=== PATIENT | male | born 1955 | race Caucasian/White ===

== ENCOUNTER 2017-01-27 16:55 | Inpatient (IN) ==
[2017-01-27] MEDS ORDERED: IPRATROPIUM/ALBUTEROL 2.5mg-0.5mg/3ml NEB AEROSOL ONE (17:08)
--- NOTE | 2017-01-27 17:16 | Emergency Department Report ---
SOB HPI - General Chief Complaint: Shortness of Breath/Dyspnea Stated Complaint: Difficulty Breathing Time Seen by Provider: 01/27/17 17:07 Source: patient Mode of arrival: ambulatory Limitations: no limitations - History of Present Illness He presents to ER today for dyspnea. Was seen in our ER last weekend for the same. Had workup done and was negative at that time aside from his troponin being upper limit of normal. Was presented to hospitalist for admission and needed cardiology ok before acceptance. He has had been in the hospital in July of 2016 for bypass surgery but decided not to do the surgery as he was too worried about the risk. Had not followed up with anyone since then. He did not want to be admitted over the weekend for his COPD and further workup given his troponin was upper limit of normal. Had stated at that time that he needed to get some things in line at home. He was sent home with a nebulizer and Albuterol but state that he ordered the nebulizer on [employer] and did not get it until 2 days ago. Followed up today with Dr Molina and was advised to come to ER. He did refuse EMS but did go home and have his neighbor drive him to Er. Upon arrival he is tachypneic and in tripod position. Noted sats are 79% on RA. He does not wear O2 at home. He is able to speak but not in complete sentences. Does have chest pain when he takes a deep breath but denies at this time otherwise. Complaint: shortness of breath Onset (ago): week(s) Context: other (exacerbation of his COPD) Severity: moderate Consistency/Duration: constant Relieving factors: rest, upright position Exacerbating factors: lying flat, exertion, movement, coughing Known history of: COPD, other (CAD) Associated symptoms: chest pain, pain with inspiration, cough, wheezing, sputum production, orthopnea Treatment prior to arrival: bronchodilator - Related Data Home oxygen amount: none Home Medications Medication Instructions Recorded Confirmed Atenolol/Chlorthalidone 50/25 1 tab PO DAILY #0 08/07/15 01/27/17 [Tenoretic] Gabapentin 300 mg PO TID #0 08/07/15 01/27/17 Isosorbide Dinitrate 30 mg PO DAILY #0 08/07/15 01/27/17 Lovastatin 20 mg PO HS #0 08/07/15 01/27/17 Aspirin 650 mg PO TID PRN #30 tab 12/16/15 01/27/17 Albuterol Inhaler [Ventolin Hfa] 1 puff INH QID PRN 01/27/17 01/27/17 Azithromycin [Zithromax] 250 mg PO DAILY 01/27/17 01/27/17 Fish Oil 1,200 mg Fish Oil 1,200 mg PO BID 01/27/17 01/27/17 Fluticasone/Vilanterol [Breo 1 puff INH DAILY 01/27/17 01/27/17 Ellipta 200-25 Mcg INH] Metformin [Glucophage] 1,000 mg PO BID 01/27/17 01/27/17 Previous Rx's Medication Instructions Recorded Albuterol Sulfate 2.5 mg AEROSOL Q4H PRN #60 vial 01/22/17 PredniSONE [Deltasone] 20 mg PO WB #12 tablet 01/22/17 Allergies Allergy/AdvReac Type Severity Reaction Status Date / Time No Known Allergies Allergy Verified 01/27/17 17:55 Review of Systems Constitutional: Reports: weakness. Denies: fever, chills Cardiovascular: Reports: chest pain, dyspnea on exertion. Denies: palpitations , edema Respiratory: Reports: cough, dyspnea, wheezes Gastrointestinal: Denies: abdominal pain, nausea, vomiting, diarrhea, constipation Integumentary: Denies: rash Neurological: Denies: headache, weakness, numbness, paresthesias PFSH Patient Stated Medical History Cataracts Yes Angina Yes Hypertension Yes Myocardial Infarction Yes Other Cardiology Yes: REFUSED BIPASS 6 MONTHS AGO Chronic Obstructive Pulmonary Yes Disease (COPD) Other Respiratory Yes: EMPHYSEMIA Diabetes Mellitus Type 2 Yes Family History: non contributory - Social History Smoking status: Current every day smoker Physical Exam - General General appearance: alert, in no apparent distress - Normal Exams: ENMT:: No facial trauma, nasal exudates, pharyngeal erythema, or exudates are noted Neck:: Full range of motion, without adenopathy, JVD, bruits or thyromegaly Abdomen:: Bowel sounds positive, soft, non-tender, non-distended, no hepatosplenomegaly, masses or bruits noted Lymphatic:: No lymphadenopathy, or lymphedema noted Neurological:: Patient is alert, and oriented Psychiatric:: Patient exhibits, appropriate attention, emotion and affect - Respiratory Respiratory exam: Present: wheezes (in BUL but diminished throughout mostly. tripod position with tachypnea) - Cardiovascular Cardiovascular exam: Present: tachycardia, normal heart sounds. Absent: regular rate (tachycardic) Course Vital Signs Respiratory Rate 18 01/27/17 17:18 Pulse Oximetry 95 01/27/17 17:18 Respiratory Rate 30 H 01/27/17 18:08 Pulse Oximetry 94 01/27/17 18:08 Shortness of Breath/Dyspnea - [facility] Narrative Medical decision making narrative: troponin today is lower than on previous admit. Did discuss HPI and exam today with Dr Mirza who will accept for admission at this time. Patient does agree to admission for pulmonary symptoms. - Differential Diagnosis Likely: acute exacerbation of chronic obstructive airways disease, community acquired pneumonia (AMI, angina) - Lab Data Attestation: I reviewed the patient's lab results. Result diagrams: 01/27/17 17:21 01/27/17 17:21 Lab Results 01/27/17 01/27/17 Range/Units 17:21 17:21 WBC 11.1 H (4.5-11.0) T/MM3 RBC 6.29 H (4.50-5.90) M/MM3 Hgb 18.3 H (13.5-17.5) GM/DL Hct 56.2 H (41-53) % MCV 89.3 (80-100) UM3 MCH 29.1 (26-34) UUG MCHC 32.6 (31-37) GM/DL RDW Std Deviation 46.6 (36.9-50.2) FL Plt Count 388 (130-400) T/MM3 MPV 9.5 (9.4-12.4) UM3 Immature Gran % (Auto) Not performed Neut % (Auto) Not performed Lymph % (Auto) Not performed [place] % (Auto) Not performed Eos % (Auto) Not performed Baso % (Auto) Not performed Neut # Not performed Lymph # Not performed [place] # Not performed Baso # Not performed Abs Immat Gran (auto) Not performed Neutrophils % (Manual) 89.0 H (33-66) % Lymphocytes % (Manual) 9.0 L (23-45) % Monocytes % (Manual) 2.0 (0-9.0) % Neutrophils # (Manual) 9.9 H (1.8-7.7) T/MM3 Lymphocytes # (Manual) 1.0 (1-4.8) T/MM3 Monocytes # (Manual) 0.2 (0-0.8) T/MM3 RBC Morph Comment Normal Turbidity < 20 (0-20) Sodium 143 (134-144) MEQ/L Potassium 5.0 (3.6-5) MEQ/L Chloride 94 L (98-107) MEQ/L Carbon Dioxide 31 H (22-30) MEQ/L Anion Gap 18 H (5-15) MEQ/L BUN 40.0 H (9-20) MG/DL Creatinine 1.4 (0.8-1.5) MG/DL GFR Calculation 52 BUN/Creatinine Ratio 29 H (6-26) RATIO Glucose 334 H (75-110) MG/DL Calculated Osmolality 298 H (261-280) MOSM/KG Calcium 10.4 H (8.4-10.2) MG/DL Icterus Index < 2 (0-7) Troponin I 0.016 (0-0.12) ng/ml Specimen Hemolysis < 15 (0-25) - Radiology Data Attestation: I reviewed the patient's radiology results. Disposition Clinical Impression: COPD with exacerbation Disposition: 02 To [facility] Acute Care Condition: Stable Time of Disposition: 17:54 - Seen By: midlevel
[2017-01-27] MEDS ORDERED: METHYLPREDNISOLONE SOD SUCC 125mg/2ml INJECTION IVP ONE (17:51)
[2017-01-27] MEDS ORDERED: ALBUTEROL 2.5mg/3ml (0.083%) NEB AEROSOL ONE (17:53)
[2017-01-27] MEDS: SALINE FLUSH 10ml SYRINGE IVF PRN (17:56)
[2017-01-27] MEDS ORDERED: ONDANSETRON 4 MG/2 ML INJECTION IVP PRN (19:59)
[2017-01-27] MEDS ORDERED: CALCIUM CARBONATE Chewable 500mg TABLET PO PRN (19:59)
[2017-01-27] MEDS ORDERED: HYDROCODONE/APAP 5mg/325mg TABLET PO PRN (19:59)
[2017-01-27] MEDS ORDERED: ACETAMINOPHEN 325 MG TABLET PO PRN (19:59)
[2017-01-27] MEDS ORDERED: ALBUTEROL 2.5mg/3ml (0.083%) NEB AEROSOL PRN (20:14)
--- NOTE | 2017-01-27 20:20 | History & Physical Report ---
History of Present Illness Date: 01/27/17 Chief complaint: dyspnea HPI: Mr. Medrano 61-year-old male with known COPD and coronary artery disease. He's had increasing dyspnea for 2 weeks with cough productive of clear sputum. He's had significant deterioration in exertional tolerance and is now able to ambulate only about 10 feet due to dyspnea. He reports he is unable to lay down for more than short periods of time and had to sleep at his table earlier this week to get a couple of hours of rest. He developed rhinorrhea over the past couple of days but is otherwise had no nasal congestion or upper symptoms. He was seen in the emergency room over the weekend at which time hospitalization was recommended but the patient elected to discharge home. A nebulizer was ordered for the patient but he did not get the equipment and medication until 2 days ago. He's continued to have progressive dyspnea. He denied fevers, chills, sweats, or purulent sputum. He reports having some mild chest pain occurring primarily when he is having a lot of trouble breathing and can't get his breath. He was seen at [facility] earlier today and advised to go to the emergency room. Oxygen saturation was 79% on room air and the patient was reported to be in tripod position. He was in respiratory distress in the emergency room with respiratory rates of 30 and heart rate of 108. He is hospitalized now with acute hypoxic respiratory failure/COPD exacerbation. Review of Systems Review of systems: Comprehensive review of systems completed with patient describing chronic claudication at one fourth block, occasional chest pain as noted above with frequent palpitations. Increased anxiety associated with breathlessness, and chronically numb feet. Remainder of review negative or as per history of present illness. [facility] Patient Stated Medical History Peripheral Neuropathy Yes Cataracts Yes Dental Problems Yes: NO TEETH Angina Yes Hypertension Yes Myocardial Infarction Yes Triple-vessel coronary artery disease, bypass recommended Chronic Obstructive Pulmonary Yes Disease (COPD) Diabetes Mellitus Type 2 Yes Peripheral vascular disease Chronic anxiety Hyperlipidemia Surgical History: Tonsillectomy - Social History Smoking status: Current every day smoker (vitals his own cigarettes-45 cigarettes per day although decreased to 15 per day the past 2 weeks; 50 years) Time spent discussing smoking cessation with patient: 3 to 10 minutes Substance use type: marijuana Alcohol intake frequency: former alcohol drinker (discontinue 1990) Household members: none Does patient use chewing tobacco?: No Social history: PCP-Dr. Molina Cardiology-Dr. Alicea DPOA-none does not identify an alternate decision maker CODE STATUS-DO NOT RESUSCITATE; if he is conscious and can talk will discuss options at the time Medications Home Medications Medication Instructions Recorded Confirmed Type Atenolol/Chlorthalidone 50/25 1 tab PO DAILY #0 08/07/15 01/27/17 History [Tenoretic] Gabapentin 300 mg PO TID #0 08/07/15 01/27/17 History Isosorbide Dinitrate 30 mg PO DAILY #0 08/07/15 01/27/17 History Lovastatin 20 mg PO HS #0 08/07/15 01/27/17 History Aspirin 650 mg PO TID PRN #30 tab 12/16/15 01/27/17 History Albuterol Inhaler [Ventolin Hfa] 1 puff INH QID PRN 01/27/17 01/27/17 History Azithromycin [Zithromax] 250 mg PO DAILY 01/27/17 01/27/17 History Fish Oil 1,200 mg Fish Oil 1,200 mg PO BID 01/27/17 01/27/17 History Fluticasone/Vilanterol [Breo 1 puff INH DAILY 01/27/17 01/27/17 History Ellipta 200-25 Mcg INH] Metformin [Glucophage] 1,000 mg PO BID 01/27/17 01/27/17 History Allergies Allergy/AdvReac Type Severity Reaction Status Date / Time No Known Allergies Allergy Verified 01/27/17 17:55 Exam Vital Signs: Temp Pulse Resp BP Pulse Ox 97.6 F 96 30 H 151/85 H 96 01/27/17 19:36 01/27/17 19:36 01/27/17 19:36 01/27/17 19:36 01/27/17 19:36 EXAM: General-cachectic male on 3 L supplemental oxygen, dyspneic with speaking, HEENT-PERRL, EOMI without nystagmus, conjugate gaze, conjunctiva clear, sclera anicteric facial structures symmetric, oropharynx clear, neck supple and without adenopathy Lungs-moderate respiratory distress at rest, accessory muscle use evident, decreased breath sounds throughout but no wheezing, no rhonchi Cardiac-regular rhythm, low-grade tachycardia, S1 and S2 Abd-soft, nontender, without palpable mass, bowel sounds present Ext-without edema Skin-bradycardia complexion, no obvious wounds MS-muscle atrophy Neuro-cranial nerves 3-12 grossly intact, no tremor, sensation intact 4 extremities Psych-anxious Height: 1.57 m Weight: 55.6 kg Body Mass Index: 22.4 Results - Labs CBC & Chem 7: 01/27/17 17:21 01/27/17 17:21 Labs: Differential 89 neutrophils, 9 lymphocytes, 2 monocytes - Pulse Oximetry Interpretation Digit-Finger Actions taken: none - ECG Data Tracing #1 Sinus rhythm, right bundle branch block with secondary ST/T-wave abnormalities; old inferior SD. - Imaging and Cardiology Chest x-ray Status: image reviewed by me (hyperinflated lung jama without infiltrate, possible small effusions bilaterally) Assessment and Plan Assessment and Plan: Acute hypoxic respiratory failure COPD exacerbation Diabetes mellitus with neuropathy; uncontrolled Hypertension Coronary artery disease, triple-vessel Peripheral vascular disease, severe Acute kidney injury/chronic kidney disease Hypercalcemia Patient is admitted with acute hypoxic respiratory failure and respiratory distress. There is no evidence of infiltrate on chest x-ray and symptoms are more compatible with viral prodrome. Respiratory viral panel be obtained. Steroids were initiated in the emergency room and will be continued. Antibiotics will be continued with Levaquin daily. Breathing treatments have been initiated, continue Breo, check respiratory viral panel and sputum culture. Blood gas in the morning. Blood sugars significantly elevated on admission, check A1c. Monitor blood sugars. Continue metformin. Add corrective scale insulin. Patient likely require relatively high dose insulin in conjunction with steroids. Troponin 0.016 in the emergency room, improved from last week. Check serial values. Dr. Alicea performed heart catheter last year demonstrating triple vessel disease and recommended bypass surgery. BUN/creatinine elevated from baseline-likely dry but may represent progression of underlying diabetic renal disease. Low-volume fluids and monitor. Sepsis Assessment - Focused Exam Vital Signs Temp Pulse Resp BP Pulse Ox 01/27/17 19:36 97.6 F 96 30 H 151/85 H 96 01/27/17 19:10 104 H 24 153/84 H 91 Hospital Course Summary Disclaimer: The visit summary below is not to be considered part of the above Progress Note. Hospital Course: 01/27/17 20:46 Patient is admitted with acute hypoxic respiratory failure and respiratory distress. There is no evidence of infiltrate on chest x-ray and symptoms are more compatible with viral prodrome. Respiratory viral panel be obtained. Steroids were initiated in the emergency room and will be continued. Antibiotics will be continued with Levaquin daily. Breathing treatments have been initiated, continue Breo, check respiratory viral panel and sputum culture. Blood gas in the morning. Blood sugars significantly elevated on admission, check A1c. Monitor blood sugars. Continue metformin. Add corrective scale insulin. Patient likely require relatively high dose insulin in conjunction with steroids. Troponin 0.016 in the emergency room, improved from last week. Check serial values. Dr. Alicea performed heart catheter last year demonstrating triple vessel disease and recommended bypass surgery. BUN/creatinine elevated from baseline-likely dry but may represent progression of underlying diabetic renal disease. Low-volume fluids and monitor.
[2017-01-27] MEDS: IPRATROPIUM/ALBUTEROL 2.5mg-0.5mg/3ml NEB AEROSOL SCH (20:28)
[2017-01-27] MEDS ORDERED: INSULIN ASPART 100unit/ml INJECTION SQ PRN (20:35)
[2017-01-27] MEDS ORDERED: NITROGLYCERIN 0.4 MG SUBLINGUAL TABLET SL PRN (20:42)
[2017-01-27] MEDS ORDERED: METFORMIN 1,000 MG TABLET PO SCH (21:00)
[2017-01-27] MEDS: DOCUSATE SODIUM 100 MG CAPSULE PO SCH (21:29)
[2017-01-27] MEDS: METHYLPREDNISOLONE SOD SUCC 125mg/2ml INJECTION IVP SCH (21:29)
[2017-01-27] MEDS: LOVASTATIN 20 MG TABLET PO SCH (21:29)
[2017-01-27] MEDS: GABAPENTIN 300 MG CAPSULE PO SCH (21:29)
[2017-01-27] MEDS: NS 1,000 ML IV SCH (21:32)
[2017-01-28] MEDS: IPRATROPIUM/ALBUTEROL 2.5mg-0.5mg/3ml NEB AEROSOL SCH ×4 (00:48→22:55)
[2017-01-28] MEDS: METHYLPREDNISOLONE SOD SUCC 125mg/2ml INJECTION IVP SCH ×4 (03:50→22:32)
[2017-01-28] MEDS: LEVOFLOXACIN 500 MG TABLET PO SCH (05:40)
--- NOTE | 2017-01-28 08:15 | XRay Report ---
INDICATION: dyspnea PROCEDURE: CHEST 2-VIEWS UPRIGHT (PA & LAT) Encounter: Initial Comparison: January 22, 2017 Findings: The lungs are stable in appearance without new focal airspace consolidation. There is no pleural effusion or pneumothorax. The heart size, pulmonary vascularity and mediastinal contours are unchanged. IMPRESSION: Stable appearance of the chest without acute cardiopulmonary disease. .
[2017-01-28] MEDS: ATENOLOL/CHLORTHALIDONE 50 MG/25 MG TABLET PO SCH (08:26)
[2017-01-28] MEDS: OMEGA-3 ACID ESTERS 1 GM CAPSULE PO SCH ×2 (08:27→22:31)
[2017-01-28] MEDS: METFORMIN 1,000 MG TABLET PO SCH ×2 (08:27→18:38)
[2017-01-28] MEDS: DOCUSATE SODIUM 100 MG CAPSULE PO SCH ×3 (08:27→22:40)
[2017-01-28] MEDS: GABAPENTIN 300 MG CAPSULE PO SCH ×3 (08:27→22:31)
[2017-01-28] MEDS: ISOSORBIDE MONONITRATE ER 30 MG TABLET PO SCH (08:27)
[2017-01-28] MEDS: NICOTINE 21 MG PATCH TD SCH (08:28)
[2017-01-28] MEDS ORDERED: AZITHROMYCIN 250 MG TABLET PO SCH (09:00)
[2017-01-28] MEDS: ALPRAZolam 0.5 MG TABLET PO PRN (10:21)
[2017-01-28] MEDS: NS 1,000 ML IV SCH (15:32)
--- NOTE | 2017-01-28 16:42 | Progress Note ---
Subjective: Mr. Medrano was resting comfortably when seen. He reports is not quite as short of breath today as he was yesterday and that he did not get dyspneic going to the bathroom earlier today. Cough is improved and he denies sputum production. He's had no chest pain or palpitations and denied nausea, lightheadedness, or generalized pain. His appetite is improved. Respiratory therapy indicated the patient refused several breathing treatments overnight. Objective Vital signs: Temp Pulse Resp BP Pulse Ox 95.8 F L 88 22 157/89 H 97 01/28/17 15:00 01/28/17 15:49 01/28/17 15:15 01/28/17 15:00 01/28/17 15:15 EXAM Rztzmmk-onmmwiso-kuvkbbiky male, resting comfortably, awakens to voice HEENT-conjunctiva clear, conjugate gaze, oropharynx clear-no thrush Lungs-respirations are nonlabored at present with decreased airflow, breath sounds are clear although minimal airflow is audible anteriorly or posteriorly Cardiac-regular rhythm, S1-S2 Abd-abdomen soft, nontender, bowel sounds present but diminished Ext-without edema Psych-drowsy - Weight: 53.54 kg Results - Labs CBC & Chem 7: 01/27/17 17:21 01/28/17 04:33 Labs: ABG obtained this mornin.38/42/56/25 with oxygen saturation 88% on 2 L per nasal cannula D-dimer <150 Accu-Cheks today: [id number] Urinalysis positive for trace protein, +2 glucose. Respiratory viral panel positive for rhinovirus. Gram stain with moderate neutrophils, moderate gram-positive cocci in pairs, few gram-negative rods, and moderate yeast. - ABG Interpretation Attestation: I reviewed and interpreted this ABG. ABG results: 01/28/17 07:00 ABG pH 7.379 ABG pCO2 42 ABG pO2 56 L ABG HCO3 25 ABG Total CO2 26 ABG O2 Saturation 88.0 L ABG Base Excess -1.0 Interpretation: other (hypoxia) Assessment and Plan (1) Rhinovirus infection Current visit: Yes Status: Acute (2) COPD with exacerbation Current visit: Yes Status: Acute (3) Acute and chronic respiratory failure with hypoxia Current visit: Yes Status: Acute Assessment and Plan: Acute hypoxic respiratory failure COPD exacerbation Rhinovirus infection Diabetes mellitus with neuropathy; uncontrolled; A1c 7.6 on 01/28/17 Hypertension Coronary artery disease, triple-vessel Peripheral vascular disease, severe Acute kidney injury/chronic kidney disease Hypercalcemia-resolved CKD, stage 2-3 Persistent hypoxia but symptoms have clinically improved while patient is at rest. Continue IV steroids overnight with plans to convert to prednisone in the morning. Continue breathing treatments-patient encouraged to use treatments regularly. Moderate hyperglycemia present overnight, patient has refused corrective scale insulin on several occasions. Anticipate improvement in blood sugar control with conversion to oral steroids. Continue diabetic diet. Current COPD exacerbation likely triggered by rhinovirus infection but will continue Levaquin pending results of sputum culture. Serial troponins unremarkable, no chest pain overnight. Renal function has improved with low-volume fluids and calcium normalized. Laboratory data reviewed, supplemental history provided by nursing and respiratory therapy. Sepsis Assessment - Evaluation Sepsis screening result: No Definite Risk - Focused Exam Vital Signs Temp Pulse Resp BP Pulse Ox 01/28/17 15:49 88 01/28/17 15:15 22 97 01/28/17 15:00 95.8 F L 83 157/89 H 94 01/28/17 08:00 91 01/28/17 07:27 95.6 F L 75 18 172/92 H 98 01/28/17 07:25 24 98 Capillary refill: < 2-3 Seconds Hospital Course Summary Disclaimer: The visit summary below is not to be considered part of the above Progress Note. Hospital Course: 01/27/17 20:46 Patient is admitted with acute hypoxic respiratory failure and respiratory distress. There is no evidence of infiltrate on chest x-ray and symptoms are more compatible with viral prodrome. Respiratory viral panel be obtained. Steroids were initiated in the emergency room and will be continued. Antibiotics will be continued with Levaquin daily. Breathing treatments have been initiated, continue Breo, check respiratory viral panel and sputum culture. Blood gas in the morning. Blood sugars significantly elevated on admission, check A1c. Monitor blood sugars. Continue metformin. Add corrective scale insulin. Patient likely require relatively high dose insulin in conjunction with steroids. Troponin 0.016 in the emergency room, improved from last week. Check serial values. Dr. Alicea performed heart catheter last year demonstrating triple vessel disease and recommended bypass surgery. BUN/creatinine elevated from baseline-likely dry but may represent progression of underlying diabetic renal disease. Low-volume fluids and monitor. 01/28/17 17:05 Persistent hypoxia but symptoms have clinically improved while patient is at rest. Continue IV steroids overnight with plans to convert to prednisone in the morning. Continue breathing treatments-patient encouraged to use treatments regularly. Moderate hyperglycemia present overnight, patient has refused corrective scale insulin on several occasions. Anticipate improvement in blood sugar control with conversion to oral steroids. Continue diabetic diet. Current COPD exacerbation likely triggered by rhinovirus infection but will continue Levaquin pending results of sputum culture. Serial troponins unremarkable, no chest pain overnight. Renal function has improved with low-volume fluids and calcium normalized.
[2017-01-28] MEDS: LOVASTATIN 20 MG TABLET PO SCH (22:30)
[2017-01-28] MEDS: MORPHINE SULFATE 2 MG SYRINGE IVP PRN (22:33)
[2017-01-28] MEDS: FLUTICASONE/VILANTEROL 100/25mcg INHALER ORAL INH SCH (22:56)
[2017-01-29] MEDS: MORPHINE SULFATE 2 MG SYRINGE IVP PRN (01:43)
[2017-01-29] MEDS: SALINE FLUSH 10ml SYRINGE IVF PRN ×2 (01:55→03:16)
[2017-01-29] MEDS: METHYLPREDNISOLONE SOD SUCC 125mg/2ml INJECTION IVP SCH (03:15)
[2017-01-29] MEDS: IPRATROPIUM/ALBUTEROL 2.5mg-0.5mg/3ml NEB AEROSOL SCH ×4 (05:20→23:20)
[2017-01-29] MEDS: LEVOFLOXACIN 500 MG TABLET PO SCH (05:43)
[2017-01-29] MEDS: ISOSORBIDE MONONITRATE ER 30 MG TABLET PO SCH (05:44)
[2017-01-29] MEDS: OMEGA-3 ACID ESTERS 1 GM CAPSULE PO SCH ×2 (08:25→22:04)
[2017-01-29] MEDS: PredniSONE 20 MG TABLET PO SCH (08:25)
[2017-01-29] MEDS: GABAPENTIN 300 MG CAPSULE PO SCH ×3 (08:26→22:04)
[2017-01-29] MEDS: ATENOLOL/CHLORTHALIDONE 50 MG/25 MG TABLET PO SCH (08:26)
[2017-01-29] MEDS: NICOTINE PATCH REMOVAL TD SCH (08:26)
[2017-01-29] MEDS: NICOTINE 21 MG PATCH TD SCH (08:26)
[2017-01-29] MEDS: ENOXAPARIN 40 MG/0.4 ML INJECTION SQ SCH ×2 (08:26→14:12)
[2017-01-29] MEDS: METFORMIN 1,000 MG TABLET PO SCH ×2 (08:27→17:38)
[2017-01-29] MEDS: FLUTICASONE/VILANTEROL 100/25mcg INHALER ORAL INH SCH (10:06)
--- NOTE | 2017-01-29 12:23 | Progress Note ---
Subjective: Pt reports he's feeling a bit better but not back to his baseline yet. Denies any cp, n/v/d, f/c. SOB is still present, breathing tx's helping. Pt reports two things that will not change are him smoking cigarettes and him smoking pot. Objective Vital signs: Temp Pulse Resp BP Pulse Ox 95.7 F L 81 16 141/76 H 99 01/29/17 08:06 01/29/17 08:06 01/29/17 10:10 01/29/17 08:06 01/29/17 08:06 Rhythm: Normal Sinus Rhythm Weight: 55.4 kg - Constitutional Present: no acute distress - Routine HEENT Exam Head: Present: normocephalic, atraumatic Eye: Present: EOMI ENT: Present: mucous membranes moist - Routine Respiratory Exam Present: prolonged expiratory phase, wheezes - Routine Cardiovascular Exam Present: RRR, no murmur - Routine Abdominal Exam Present: non distended, non tender - Routine Extremities Exam Absent: cyanosis, clubbing, edema - Routine Skin Exam Present: intact, dry. Absent: rash Results - Labs CBC & Chem 7: 01/29/17 05:20 01/29/17 05:20 - ABG Interpretation ABG results: 01/28/17 07:00 ABG pH 7.379 ABG pCO2 42 ABG pO2 56 L ABG HCO3 25 ABG Total CO2 26 ABG O2 Saturation 88.0 L ABG Base Excess -1.0 Assessment and Plan (1) COPD with exacerbation Current visit: Yes Status: Acute (2) Rhinovirus infection Current visit: Yes Status: Acute (3) Acute and chronic respiratory failure with hypoxia Current visit: Yes Status: Acute Assessment and Plan: COPD exacerbation -2/2 Rhinovirus infection -Cont. RCAT, prednisone D3, Cont. Levaquin as sputum GS showed g+ and g- organisms, await cx's -CXR shows chronic changes, Cont. O2 support as needed -Pt not interested in quitting smoking Acute hypoxic respiratory failure -2/2 COPD exacerbation -Tx per above, may need setup for home O2 DM -Complicated with neuropathy -uncontrolled; A1c 7.6 on 01/28/17 -Cont. Metformin, gabapentin -hyperglycemia d/t steroid use but pt refusing any insulin -Monitor Hypertension -Cont. home isosorbide mononitrate, atenolol CAD/PVD -Severe -triple-vessel -Pt has been evaluated in the past but has refused any interventions CKD stage 2-3 -At baseline Ppx -DVT-Lovenox (pt refusing) Sepsis Assessment - Evaluation Sepsis screening result: No Definite Risk - Focused Exam Vital Signs Temp Pulse Resp BP Pulse Ox 01/29/17 10:10 16 01/29/17 08:06 95.7 F L 81 20 141/76 H 99 01/29/17 08:00 84 Capillary refill: < 2-3 Seconds Hospital Course Summary Disclaimer: The visit summary below is not to be considered part of the above Progress Note. Hospital Course: 01/27/17 20:46 Patient is admitted with acute hypoxic respiratory failure and respiratory distress. There is no evidence of infiltrate on chest x-ray and symptoms are more compatible with viral prodrome. Respiratory viral panel be obtained. Steroids were initiated in the emergency room and will be continued. Antibiotics will be continued with Levaquin daily. Breathing treatments have been initiated, continue Breo, check respiratory viral panel and sputum culture. Blood gas in the morning. Blood sugars significantly elevated on admission, check A1c. Monitor blood sugars. Continue metformin. Add corrective scale insulin. Patient likely require relatively high dose insulin in conjunction with steroids. Troponin 0.016 in the emergency room, improved from last week. Check serial values. Dr. Alicea performed heart catheter last year demonstrating triple vessel disease and recommended bypass surgery. BUN/creatinine elevated from baseline-likely dry but may represent progression of underlying diabetic renal disease. Low-volume fluids and monitor. 01/28/17 17:05 Persistent hypoxia but symptoms have clinically improved while patient is at rest. Continue IV steroids overnight with plans to convert to prednisone in the morning. Continue breathing treatments-patient encouraged to use treatments regularly. Moderate hyperglycemia present overnight, patient has refused corrective scale insulin on several occasions. Anticipate improvement in blood sugar control with conversion to oral steroids. Continue diabetic diet. Current COPD exacerbation likely triggered by rhinovirus infection but will continue Levaquin pending results of sputum culture. Serial troponins unremarkable, no chest pain overnight. Renal function has improved with low-volume fluids and calcium normalized. 01/29/17 12:23 Slowly improving, switched to po steroids, cont. breathing tx's and wean off O2 if possible but may need to go home on O2.
[2017-01-29] MEDS: NS 1,000 ML IV SCH (14:26)
[2017-01-29] MEDS: ALPRAZolam 0.5 MG TABLET PO PRN (16:22)
[2017-01-29] MEDS: LOVASTATIN 20 MG TABLET PO SCH (22:04)
[2017-01-30] MEDS: LEVOFLOXACIN 500 MG TABLET PO SCH (05:36)
[2017-01-30] MEDS: ISOSORBIDE MONONITRATE ER 30 MG TABLET PO SCH (05:36)
[2017-01-30] MEDS: FLUTICASONE/VILANTEROL 100/25mcg INHALER ORAL INH SCH (09:47)
[2017-01-30] MEDS: PredniSONE 20 MG TABLET PO SCH (10:11)
[2017-01-30] MEDS: ENOXAPARIN 40 MG/0.4 ML INJECTION SQ SCH ×2 (10:12→10:18)
[2017-01-30] MEDS: OMEGA-3 ACID ESTERS 1 GM CAPSULE PO SCH (10:12)
[2017-01-30] MEDS: METFORMIN 1,000 MG TABLET PO SCH (10:12)
[2017-01-30] MEDS: GABAPENTIN 300 MG CAPSULE PO SCH ×2 (10:13→18:14)
[2017-01-30] MEDS: NICOTINE 21 MG PATCH TD SCH (10:13)
[2017-01-30] MEDS: ATENOLOL/CHLORTHALIDONE 50 MG/25 MG TABLET PO SCH (10:14)
[2017-01-30] MEDS: NICOTINE PATCH REMOVAL TD SCH (10:14)
[2017-01-30] MEDS: NS 1,000 ML IV SCH (11:32)
[2017-01-30] MEDS: IPRATROPIUM/ALBUTEROL 2.5mg-0.5mg/3ml NEB AEROSOL SCH ×2 (11:57)
--- NOTE | 2017-01-30 12:25 | Discharge Summary ---
Discharge Information Date of admission: 01/27/17 18:21 Anticipated date of discharge: 01/30/17 Attending Physician: Beatriz Mirza MD Primary care physician: Eric Molina, - Discharge Diagnosis (1) COPD with exacerbation Status: Acute (2) Rhinovirus infection Status: Acute (3) Acute and chronic respiratory failure with hypoxia Status: Acute - Laboratory Labs: 01/29/17 05:20 01/29/17 05:20 Laboratory Results - last 48 hr 01/28/17 01/28/17 01/29/17 15:30 21:35 05:20 WBC 10.2 RBC 5.06 Hgb 15.0 D Hct 46.4 D MCV 91.7 MCH 29.6 MCHC 32.3 RDW Std Deviation 45.6 Plt Count 289 MPV 9.8 Immature Gran % (Auto) Not performed Neut % (Auto) Not performed Lymph % (Auto) Not performed [place] % (Auto) Not performed Eos % (Auto) Not performed Baso % (Auto) Not performed Neut # Not performed Lymph # Not performed [place] # Not performed Baso # Not performed Abs Immat Gran (auto) Not performed Neutrophils % (Manual) 95.0 H Lymphocytes % (Manual) 4.0 L Monocytes % (Manual) 1.0 Neutrophils # (Manual) 9.7 H Lymphocytes # (Manual) 0.4 L Monocytes # (Manual) 0.1 RBC Morph Comment Normal Turbidity Sodium Potassium Chloride Carbon Dioxide Anion Gap BUN Creatinine GFR Calculation BUN/Creatinine Ratio Glucose Glucometer 255 320 Calculated Osmolality Calcium Magnesium Icterus Index Specimen Hemolysis 01/29/17 01/29/17 01/29/17 05:20 06:04 10:26 WBC RBC Hgb Hct MCV MCH MCHC RDW Std Deviation Plt Count MPV Immature Gran % (Auto) Neut % (Auto) Lymph % (Auto) [place] % (Auto) Eos % (Auto) Baso % (Auto) Neut # Lymph # [place] # Baso # Abs Immat Gran (auto) Neutrophils % (Manual) Lymphocytes % (Manual) Monocytes % (Manual) Neutrophils # (Manual) Lymphocytes # (Manual) Monocytes # (Manual) RBC Morph Comment Turbidity < 20 Sodium 139 Potassium 4.8 Chloride 99 Carbon Dioxide 29 Anion Gap 11 BUN 40.0 H Creatinine 1.0 D GFR Calculation 76 BUN/Creatinine Ratio 40 H Glucose 306 H Glucometer 305 329 Calculated Osmolality 290 H Calcium 9.0 Magnesium 1.9 Icterus Index < 2 Specimen Hemolysis < 15 01/29/17 01/29/17 01/30/17 14:07 19:57 05:44 WBC RBC Hgb Hct MCV MCH MCHC RDW Std Deviation Plt Count MPV Immature Gran % (Auto) Neut % (Auto) Lymph % (Auto) [place] % (Auto) Eos % (Auto) Baso % (Auto) Neut # Lymph # [place] # Baso # Abs Immat Gran (auto) Neutrophils % (Manual) Lymphocytes % (Manual) Monocytes % (Manual) Neutrophils # (Manual) Lymphocytes # (Manual) Monocytes # (Manual) RBC Morph Comment Turbidity Sodium Potassium Chloride Carbon Dioxide Anion Gap BUN Creatinine GFR Calculation BUN/Creatinine Ratio Glucose Glucometer 339 263 203 Calculated Osmolality Calcium Magnesium Icterus Index Specimen Hemolysis 01/30/17 10:24 WBC RBC Hgb Hct MCV MCH MCHC RDW Std Deviation Plt Count MPV Immature Gran % (Auto) Neut % (Auto) Lymph % (Auto) [place] % (Auto) Eos % (Auto) Baso % (Auto) Neut # Lymph # [place] # Baso # Abs Immat Gran (auto) Neutrophils % (Manual) Lymphocytes % (Manual) Monocytes % (Manual) Neutrophils # (Manual) Lymphocytes # (Manual) Monocytes # (Manual) RBC Morph Comment Turbidity Sodium Potassium Chloride Carbon Dioxide Anion Gap BUN Creatinine GFR Calculation BUN/Creatinine Ratio Glucose Glucometer 260 Calculated Osmolality Calcium Magnesium Icterus Index Specimen Hemolysis - Microbiology Microbiology 01/28/17 08:12 Sputum, Expectorated Gram Stain - Final 01/28/17 08:12 Sputum, Expectorated Sputum Culture - Preliminary Early growth History of Present Illness HPI: Mr. Medrano 61-year-old male with known COPD and coronary artery disease. He's had increasing dyspnea for 2 weeks with cough productive of clear sputum. He's had significant deterioration in exertional tolerance and is now able to ambulate only about 10 feet due to dyspnea. He reports he is unable to lay down for more than short periods of time and had to sleep at his table earlier this week to get a couple of hours of rest. He developed rhinorrhea over the past couple of days but is otherwise had no nasal congestion or upper symptoms. He was seen in the emergency room over the weekend at which time hospitalization was recommended but the patient elected to discharge home. A nebulizer was ordered for the patient but he did not get the equipment and medication until 2 days ago. He's continued to have progressive dyspnea. He denied fevers, chills, sweats, or purulent sputum. He reports having some mild chest pain occurring primarily when he is having a lot of trouble breathing and can't get his breath. He was seen at [facility] earlier today and advised to go to the emergency room. Oxygen saturation was 79% on room air and the patient was reported to be in tripod position. He was in respiratory distress in the emergency room with respiratory rates of 30 and heart rate of 108. He is hospitalized now with acute hypoxic respiratory failure/COPD exacerbation. Hospital Course Hospital course: Brief Discharge Summary Pt was admitted for COPD exacerbation 2/2 rhinovirus. Pt did well with breathing tx's, abx and steroids. Pt was found to need 1L of O2 with rest and 4L with activity and this was set up before discharge. CXR did not show any acute pathology. Pt did not agree to quit smoking. Discussed with him the dangers of O2 use and smoking. Pt will be sent home on 5 days of abx and steroids. Detailed Discharge Summary 01/27/17 20:46 Patient is admitted with acute hypoxic respiratory failure and respiratory distress. There is no evidence of infiltrate on chest x-ray and symptoms are more compatible with viral prodrome. Respiratory viral panel be obtained. Steroids were initiated in the emergency room and will be continued. Antibiotics will be continued with Levaquin daily. Breathing treatments have been initiated, continue Breo, check respiratory viral panel and sputum culture. Blood gas in the morning. Blood sugars significantly elevated on admission, check A1c. Monitor blood sugars. Continue metformin. Add corrective scale insulin. Patient likely require relatively high dose insulin in conjunction with steroids. Troponin 0.016 in the emergency room, improved from last week. Check serial values. Dr. Alicea performed heart catheter last year demonstrating triple vessel disease and recommended bypass surgery. BUN/creatinine elevated from baseline-likely dry but may represent progression of underlying diabetic renal disease. Low-volume fluids and monitor. 01/28/17 17:05 Persistent hypoxia but symptoms have clinically improved while patient is at rest. Continue IV steroids overnight with plans to convert to prednisone in the morning. Continue breathing treatments-patient encouraged to use treatments regularly. Moderate hyperglycemia present overnight, patient has refused corrective scale insulin on several occasions. Anticipate improvement in blood sugar control with conversion to oral steroids. Continue diabetic diet. Current COPD exacerbation likely triggered by rhinovirus infection but will continue Levaquin pending results of sputum culture. Serial troponins unremarkable, no chest pain overnight. Renal function has improved with low-volume fluids and calcium normalized. 01/29/17 12:23 Slowly improving, switched to po steroids, cont. breathing tx's and wean off O2 if possible but may need to go home on O2. Discharge Plan - Med Rec/Dispo Truven Instructions: Hypoxia (GEN) Prescriptions: New Levofloxacin [Levaquin] 500 mg PO ACB #5 PredniSONE [Deltasone] 40 mg PO WB #4 Continue Isosorbide Dinitrate 30 mg PO DAILY #0 Lovastatin 20 mg PO HS #0 Gabapentin 300 mg PO TID #0 Albuterol Sulfate 2.5 mg AEROSOL Q4H PRN #60 vial PRN Reason: Wheezing Metformin [Glucophage] 1,000 mg PO BID Atenolol/Chlorthalidone 50/25 [Tenoretic] 1 tab PO DAILY #0 Aspirin 650 mg PO TID PRN #30 tab PRN Reason: Pain Fish Oil 1,200 mg Fish Oil 1,200 mg PO BID Albuterol Inhaler [Ventolin Hfa] 1 puff INH QID PRN PRN Reason: Prn Orders Fluticasone/Vilanterol [Breo Ellipta 200-25 Mcg INH] 1 puff INH DAILY Discontinued Azithromycin [Zithromax] 250 mg PO DAILY PredniSONE [Deltasone] 20 mg PO WB #12 tablet - Disposition 01 Discharged Home, Self-Care
--- NOTE | 2017-01-31 15:36 | Right on Track Program ---
Right on Track Program Date of Discharge: 01/30/17 Home Medications: Home Medications Medication Instructions Recorded Confirmed Atenolol/Chlorthalidone 50/25 1 tab PO DAILY #0 08/07/15 01/27/17 [Tenoretic] Gabapentin 300 mg PO TID #0 08/07/15 01/27/17 Isosorbide Dinitrate 30 mg PO DAILY #0 08/07/15 01/27/17 Lovastatin 20 mg PO HS #0 08/07/15 01/27/17 Aspirin 650 mg PO TID PRN #30 tab 12/16/15 01/27/17 Albuterol Inhaler [Ventolin Hfa] 1 puff INH QID PRN 01/27/17 01/27/17 Fish Oil 1,200 mg Fish Oil 1,200 mg PO BID 01/27/17 01/27/17 Fluticasone/Vilanterol [Breo 1 puff INH DAILY 01/27/17 01/27/17 Ellipta 200-25 Mcg INH] Metformin [Glucophage] 1,000 mg PO BID 01/27/17 01/27/17 Previous Rx's Medication Instructions Recorded Albuterol Sulfate 2.5 mg AEROSOL Q4H PRN #60 vial 01/22/17 Levofloxacin [Levaquin] 500 mg PO ACB #5 01/30/17 PredniSONE [Deltasone] 40 mg PO WB #4 01/30/17 - Right on Track Program PHONE CALL Date: 01/31/17 Right on Track Program: 24 Hour Follow-Up Discharge Summary Received: Yes Care Plan Received: Yes Follow Up: Follow Up Appointment Scheduled Education: Diagnosis Education Reviewed Referral: Social Work Comments: I spoke with Timur on 01/31/17. He declined participation in the ROTP, but stated that his breathing was "ok" (though it sounded like he was wheezing over the phone). He stated that he was able to fill his prescriptions and his oxygen is set up at home. When I asked him if he was wheezing, he replied "OK, I'll talk to you later" and hung up. I will continue to follow. Recommendations For Follow-up: 1. F/U with Dr. Benjamin 2. See if he's interested in Home Health 3. Discuss with CM dept. 4. Continue to follow through transitional care. PHONE CALL #2 Date: 02/02/17 Follow Up: Follow Up Appointment Scheduled (HE WILL CALL DR. BENJAMIN'S OFFICE TO SCHEDULE) Education: Diagnosis Education Reviewed Referral: Social Work Comments: Timur is feeling much better today compared to when I spoke with him on 01/31. He apologized and stated he was so tired and hadn't got much sleep. He feels like his breathing has improved on the oxygen. He filled his prescriptions yesterday so just started taking them. We talked about smoking - he's cut back and knows he needs to quit, but isn't sure if he can. 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 He's going to call to schedule an appt with Dr. Benjamin. Discussed With Patient and Caregiver: Yes Recommendations For Follow-up: 1. F/U with Dr. Benjamin 2. Finish course of prednisone and Levaquin, which were just filled on 02/01/17 3. Encourage smoking cessation 4. Continue to follow through phone calls - he declined a home visit PHONE CALL #3 Date: 02/09/17 Follow Up: Follow Up Appointment Scheduled Education: Education Provided To Caregiver Referral: Primary Care Physician Comments: I spoke to Timur on 02/09/17. His breathing is about as good as can be expected. He completed the antibiotics and prednisone. He's smoking 10-15 cigarettes a day (down from 30/day). He's found that it helps if he gets out of his room more - when he's in his room he can easily smoke one after another. I encouraged him to keep working on cutting back. He denied questions about his medical treatment. He plans on calling Dr. Benjamin's office to make an appointment. He's thinking about buying a pulse oximeter from [employer], which I encouraged him to do, since it could be a good adjunct to identifying when to be evaluated. Recommendations For Follow-up: 1. I called and left a message asking them to contact Timur to schedule a hospital f/u appt with Dr. Benjamin 2. Continue with smoking cessation 3. Will continue to follow.
== END 2017-01-30 15:35 | disposition home or self-care (01) | DRG 190 ==
LOC: ED 16:55 → MED 18:10
PROVIDERS: ADMIT Internal Medicine; ATTEND Internal Medicine